=== PATIENT | male | born 1980 | race Two or more races ===

== ENCOUNTER 2023-10-07 14:47 | Emergency (ER) | payer OTHER ==
[~2023-10-07] VITALS: Ht 190.5 cm; Wt 75.0 kg
[2023-10-07 16:46] LABS: Basophils # (auto) 0 10 ^3/uL (0-0.2); Basophils % (auto) 0.8 % (0.0-2.0); Eosinophils # (auto) 0.2 10 ^3/uL (0-0.8); Eosinophils % (auto) 3.3 % (0.0-7.0); Hemoglobin 11.8 g/dL (13.5-17.5); Lymphocytes # (auto) 1.1 10 ^3/uL (0.4-5.4); Lymphocytes % (auto) 23.8 % (10.0-50.0); Mean Corpuscular Hemoglobin 27.1 pg (28.0-32.0); Mean Corpuscular Hgb Conc. 31.1 g/dL (32.0-36.0); Mean Corpuscular Volume 87.2 fL (80.0-100.0); Monocytes # (auto) 0.4 10 ^3/uL (0-1.3); Monocytes % (auto) 9.3 % (0.0-12.0); Neutrophils # (auto) 2.8 10 ^3/uL (1.6-8.6); Neutrophils % (auto) 62.8 % (37.0-80.0); Red Blood Cells 4.36 10^6/uL (4.5-5.90); Red Cell Distribution Width 15.9 % (11.8-14.3); White Blood Cell 4.5 10^3/uL (4.4-10.8)
[2023-10-07] MEDS: DexAMETHasone SOD PHOS 10MG/1ML VIAL INJ IM ONE (16:57)
[2023-10-07] MEDS: HYDROcodone-ACET 10/325MG TAB PO ONE (16:57)
[2023-10-07 17:15] LABS: Alanine Aminotransferase 281 U/L (7-40); Albumin 4.6 g/dL (3.2-4.8); Alkaline Phosphatase 93 U/L (46-116); Anion Gap 10 (5-15); Aspartate Aminotransferase 288 U/L (13-40); BUN/Creatinine Ratio 29.4 (10.0-20.0); Bilirubin, Total 0.4 mg/dL (0.2-1.0); Blood Urea Nitrogen 15 mg/dL (9-23); Calcium 9.6 mg/dL (8.5-10.1); Carbon Dioxide 25 mmol/L (20-30); Chloride 104 mmol/L (98-107); Glucose 68 mg/dL (74-106); Potassium 3.8 mmol/L (3.5-5.1); Sodium 139 mmol/L (136-145); Total Protein 8.4 g/dL (5.7-8.2)
[2023-10-07 19:30] VITALS: PULSE 66; RESP 20; O2SAT 93
[2023-10-07 19:59] VITALS: BP 135/88; PULSE 66; RESP 20; TEMP 98.1; O2SAT 92
== END 2023-10-07 20:07 ==
LOC: ER 14:47 → EEVIPCON 14:47 → ER 20:07
DX: R53.1 Weakness (principal); Z88.8 Allergy status to other drugs, medicaments and biological substances
CPT/HCPCS: 36415; 71045; 74176; 80053; 84484; 85025; 96372; 99285; J1100